=== PATIENT | female | born 1950 | race Caucasian/White ===

== ENCOUNTER 2022-12-06 10:32 | Emergency (ER) | payer MEDICARE, MEDICAID ==
[~2022-12-06] VITALS: Ht 167.6 cm; Wt 70.0 kg
[2022-12-06 12:39] LABS: HEMATOCRIT. 45.9 % (36.0-48.0); HEMOGLOBIN. 15.4 g/dL (12.0-16.0); MEAN CORPUSCULAR HEMOGLOBIN 31.3 pg (28.0-32.0); MEAN CORPUSCULAR VOLUME 93.2 fL (81.0-99.0); MEAN PLATELET VOLUME 7.1 fl (7.4-10.4); PLATELET 165 x1000/uL (130-400); RED BLOOD CELL COUNT 4.92 mill/uL (4.2-5.4); RED CELL DISTRIBUTION WIDTH 13.9 % (11.6-14.6)
[2022-12-06 12:45] LABS: CHLORIDE 100 mEq/L (98-107)
[2022-12-06 13:16] LABS: PLATELET ESTIMATE NORMAL
[2022-12-06] MEDS ORDERED: ASPIRIN 81MG TABLET PO ONE (14:00)
[2022-12-06 16:18] LABS: PROTHROMBIN TIME 10.9 sec (9.6-11.0)
[2022-12-06 17:12] LABS: CHLORIDE 103 mEq/L (98-107)
[2022-12-06 18:00] VITALS: BP 135/69
[2022-12-06] MEDS ORDERED: IOHEXOL-350 100 ML BOTTLE ONE (23:06)
== END 2022-12-06 18:49 | disposition left against medical advice (07) ==
LOC: ER 11:08 → EDBD 11:08 → EDBEDREQ 18:19 → EDBEDREQTM 18:19 → ER 18:49 → CANBEDREQ 12-07 08:27
DX: I63.9 Cerebral infarction, unspecified (principal); E11.9 Type 2 diabetes mellitus without complications; Z88.9 Allergy status to unspecified drugs, medicaments and biological substances; Z88.8 Allergy status to other drugs, medicaments and biological substances; Z88.2 Allergy status to sulfonamides; Z88.5 Allergy status to narcotic agent; Z86.011 Personal history of benign neoplasm of the brain; Z86.59 Personal history of other mental and behavioral disorders
CPT/HCPCS: 36415; 70450; 70496; 70498; 71045; 80048; 80053; 84484; 85025; 85610; 93005; 99285; Q9967